=== PATIENT | male | born 1980 | race Caucasian/White ===

== ENCOUNTER 2023-03-26 20:31 | Emergency (ER) | payer OTHER, BC ==
[2023-03-26 20:37] LABS: Glucose,Whole Blood 117 mg/dL (70-110)
[2023-03-26 20:45] LABS: Basophils # (A) 0.1 k/uL (0-0.2); Basophils % (A) 1 %; Eosinophils # (A) 0.2 k/uL (0-0.7); Eosinophils % (A) 2 %; HGB 15.4 gm/dL (13.0-17.5); Lymphocytes # (A) 2.8 k/uL (1.0-4.8); Lymphocytes % (A) 36 %; MCH 29.8 pg (25.0-35.0); MCHC 34.1 g/dL (31.0-37.0); MCV 87.3 fL (80.0-100.0); Mean Platelet Volume 6.4; Monocytes # (A) 0.4 k/uL (0-1.0); Monocytes % (A) 5 %; Neutrophils # (A) 4.3 k/uL (1.3-7.7); Neutrophils % (A) 54 %; Platelet Count 327 k/uL (150-450); RBC 5.16 m/uL (4.30-5.90); RDW 12.9 % (11.5-15.5)
[2023-03-26 20:57] LABS: ALT 63 U/L (4-49); AST 104 U/L (17-59); African American GFR (CKD) >90 (>60 ml/min/1.73 sqM); Albumin 4.5 g/dL (3.5-5.0); Alcohol <10 mg/dL; Alkaline Phosphatase 65 U/L (38-126); Anion Gap 7 mmol/L; Blood Urea Nitrogen 17 mg/dL (9-20); Calcium 9.5 mg/dL (8.4-10.2); Carbon Dioxide 29 mmol/L (22-30); Chloride 105 mmol/L (98-107); Glucose 123 mg/dL (74-99); Non-African American GFR(CKD) 84 (>60 ml/min/1.73 sqM); Potassium 3.7 mmol/L (3.5-5.1); Sodium 141 mmol/L (137-145); Total Bilirubin 0.6 mg/dL (0.2-1.3)
[2023-03-26 21:01] VITALS: TEMP 98.7
[2023-03-26 21:01] LABS: INR 1.1 (<1.2); Prothrombin Time 11.8 sec (10.0-12.5)
[2023-03-26] MEDS: ONDANSETRON 4 MG/2 ML VIAL IVP STA (21:01)
[2023-03-26] MEDS: SODIUM CHLORIDE 0.9% 1,000 ML IV STA (21:01)
[2023-03-26] MEDS: HYDROmorphone 1 MG/ML 1 ML SYRINGE IVP STA (21:02)
[2023-03-26] MEDS: LORazepam 2 MG/ML INJ IV STA (21:05)
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
[2023-03-26] MEDS: KETOROLAC 15 MG/ML 1 ML VIAL IVP STA (23:10)
[2023-03-26] MEDS: IBUPROFEN 600 MG STARTER PACK 4 TAB BTL PO STA (23:11)
[2023-03-26] MEDS: ACET/COD 300 MG/30 MG STARTER PACK 6 TAB BTL PO STA (23:11)
[2023-03-26] MEDS: traMADol 50 MG STARTER PACK 3 TAB BTL PO STA (23:17)
[2023-03-26] MEDS: ACETAMINOPHEN IV (For NPO) 1,000 MG in EMPTY BAG 1 BAG IVPB STA (23:43)
[2023-03-27 00:44] VITALS: BP 129/85; PULSE 78; RESP 18
== END 2023-03-27 00:26 | disposition home or self-care (01) ==
LOC: EC 20:31
DX: S92.351A Displaced fracture of fifth metatarsal bone, right foot, initial encounter for closed fracture (principal); S22.32XA Fracture of one rib, left side, initial encounter for closed fracture; R00.0 Tachycardia, unspecified; F17.200 Nicotine dependence, unspecified, uncomplicated; Z86.59 Personal history of other mental and behavioral disorders; Z88.0 Allergy status to penicillin; Z88.5 Allergy status to narcotic agent; V89.2XXA Person injured in unspecified motor-vehicle accident, traffic, initial encounter; Y92.410 Unspecified street and highway as the place of occurrence of the external cause
CPT/HCPCS: 36415; 93005; 86900; 86901; 80053; 83605; 84484; 85025; 85610; 85730; 86850; 80320; 72170; 73610; 73630; 71045; 72125; 70450; 71260; 74177; 29515; 99285; 96365; 96375 ×4; 96361; G0390; J2060; J2405; J1170; J0131; J1885; Q9967